=== PATIENT | male | born 1970 | race Caucasian/White ===

== ENCOUNTER 2016-11-29 19:57 | Emergency (ER) | payer OTHER ==
--- NOTE | 2016-11-29 20:22 | DIAGNOSTIC IMAGING REPORT ---
PROCEDURE: XR CHEST 2 VIEW INDICATION: COUGH TECHNIQUE: PA and lateral views. COMPARISON: Compared to chest x-ray on 09/30/2014. FINDINGS: There is linear scarring at the left lung base. Lungs are otherwise clear. Heart and mediastinum are normal. Thorax is normal. IMPRESSION: 1. Negative chest.
--- NOTE | 2016-11-29 20:53 | ED ORDER SUMMARY ---
..... Patient: HOLDEN BOYLE OrderSheet [facility] VisitID: [id number] [address] [place] [address] 46y, M Registration Date/Time: 11/29/2016 ORDER SHEET Weight: 93.8 kg (stated) Allergies: No Known Drug Allergy GENERAL ORDERS: Chest 2V Urgent (20:11 11/29/2016 Ann Mauricio.A.-C) (Ack 20:15 LMuller) (20:17 EHassan R.N.) MEDICATION ORDERS: DuoNeb Neb Tx 1 unit dose (NOW) (20:34 11/29/2016 Ann Mauricio.Matthew.-C) (20:53 Tom R.N.) IV FLUIDS: ORDER SHEET NOTES: [Electronically signed by Josefina Mosher R.N. (21:36 11/29/2016)] [Electronically signed by Josey Shirley P.A.-C (21:39 11/29/2016)] [Electronically locked/signed by Josefina Mosher R.N. (21:36 11/29/2016)]
--- NOTE | 2016-11-29 20:53 | ED NURSING NOTES ---
Clinical Report - Nurses [facility] [address] [place] [address] 11/29/2016 19:59 Patient: HOLDEN BOYLE TRIAGE Triage time 2007 PM. Acuity: LEVEL 3. Chief Complaint: WHEEZING (asthma). Alert. No acute distress. MAYDA COMA SCORE: Mayda Coma Scale: 15- eyes open spontaneously (4); best verbal response- oriented x 4 (5); best motor response- obeys commands (6). --20:16 Josefina Mosher R.N. 20:07 11/29/16. BP: 136/85 taken while sitting. HR: 75. RR: 18. O2 saturation: 100% on room air. Temp: 97.6 F (oral). Pain level now: 0/10. --20:16 Josefina Mosher R.N. Weight: 93.8 kg stated. Height/Length: 69 inches Per Patient. BMI: 30.6. --20:15 Josefina Mosher R.N. Medications Albuterol Sulfate Inhalation. --20:15 Josefina Mosher R.N. Medication/allergy information source: the patient. --20:16 Josefina Mosher R.N. Allergies No Known Drug Allergy. --20:15 Josefina Mosher R.N. History Arrived by private vehicle. Historian: patient. ( Pt states being sick in September which has brought on his asthma (chronic) which has taken albuterol and Provair with no relief.). Onset was abrupt. (4 days). He has had fatigue. No headache, photophobia, nasal discharge, sinus pain or difficulty breathing. No chest congestion. 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 PAST MEDICAL HX: Immunizations: status is unknown. SOCIAL HX: Never smoker. No alcohol use or drug use. No infectious disease exposure. ABUSE ASSESSMENT: No report of abuse. SELF HARM ASSESSMENT: A self harm assessment was performed. The patient answered "no" to the question "Do you have thoughts of harming or killing yourself?" and "Have you recently had thoughts about harming or killing others?". FALL RISK ASSESSMENT: Fall risk assessment completed. No fall risk identified. NUTRITIONAL RISK ASSESSMENT: The nutritional risk assessment revealed no deficiencies. FUNCTIONAL ASSESSMENT: Functional assessment: no impairments noted. LEARNING NEEDS ASSESSMENT: The learning needs assessment revealed no barriers. SKIN INTEGRITY ASSESSMENT: Skin integrity risk assessment completed. No skin integrity risk identified. --20:16 Josefina Mosher R.N. PROBLEMS: Dyspnea. Systemic inflamatory reaction. Asthma. Laceration. Tetanus Status. Immunizations. --20:15 Josefina Mosher R.N. ADDITIONAL SURGERIES: Endoscopy. --20:15 Josefina Mosher R.N. Interventions ID band on patient. --20:16 Josefina Mosher R.N. PHYSICAL ASSESSMENT Ambulatory to room. GENERAL / NEURO / PSYCH: Alert. Oriented X 4. Appears in no acute distress. HEENT: Voice within normal limits. Mucous membranes are pink. RESPIRATORY: Respirations not labored. The patient can speak in full sentences. Breath sounds within normal limits. CVS: Capillary refill less than 2 seconds. SKIN: Skin is warm and dry. Normal skin turgor. --20:17 Josefina Mosher R.N. NURSING PROGRESS NOTES The initial plan of care for this patient has been created This plan of care was discussed with the patient. Patient gowned and gowned. Warming measures: blanket applied. Reassurance given. Patient transported to radiology. Two patient identifiers checked. Call light placed in reach. Side rails up x 1. Bed placed in lowest position. Brakes of bed on. Brakes of chair on. FALL RISK ASSESSMENT: Fall risk assessment completed. No fall risk identified. --20:17 Josefina Mosher R.N. 20:53 11/29/2016 Duoneb (Ipratropium-Albuterol) Neb TX Nebulizer 1 unit dose given. Given by the nurse. Allergies verified and confirmed 5 rights. --20:53 Josefina Mosher R.N. Reassurance given. Reassessment after medication administered (Duo neb). He is calm. RESPIRATORY: No respiratory distress present. Breath sounds normal. No abnormal breath sounds. Two patient identifiers checked. Call light placed in reach. Side rails up. Bed placed in lowest position. Brakes of bed on. Brakes of chair on. --20:54 Josefina Mosher R.N. 20:53 11/29/16. HR: 59. RR: 16. O2 saturation: 100%. --20:54 Josefina Mosher R.N. 21:03 11/29/2016 Anastasiia Pop [place] Response: no adverse reaction symptoms have improved the patient feels better. --21:03 Josefina Mosher R.N. DISPOSITION / DISCHARGE Departure time: 2132 PM. Condition at departure: improved. The goals identified in the patient's plan of care were met. No learning barriers present. Discharge instructions provided and reviewed with the patient and spouse. Reviewed medication(s) side effects, precautions, dosing and course information. Prescription(s) given to the patient. Reviewed need for increased fluid intake. Activity restrictions (rest) reviewed. Spouse verbalized understanding. Written instructions provided in [place]i. No stop smoking instructions. The patient was discharged by the physician veterinary assistant technician. He was discharged home and accompanied by spouse. He left the Emergency Department ambulatory and via private vehicle. Spouse driving. FALL RISK ASSESSMENT: Fall risk assessment completed. No fall risk identified. MAYDA COMA SCORE: Mayda Coma Scale: 15- eyes open spontaneously (4); best verbal response- oriented x 4 (5); best motor response- obeys commands (6). --21:36 Josefina Mosher R.N. 21:30 11/29/16. BP: 124/70 (regular adult cuff) taken on the left arm, via an automated monitor, while sitting. HR: 77. RR: 16 (regular and unlabored). O2 saturation: 100% on room air. Temp: 97.6 F (oral). Pain level now: 0/10. --21:36 Josefina Mosher R.N. Locked/Released at 11/29/2016 21:36 by Josefina Mosher R.N.
--- NOTE | 2016-11-29 20:53 | ED NURSING NOTES ---
Clinical Report - Nurses [facility] [address] [place] [address] 11/29/2016 19:59 Patient: HOLDEN BOYLE TRIAGE Triage time 2007 PM. Acuity: LEVEL 3. Chief Complaint: WHEEZING (asthma). Alert. No acute distress. MAYDA COMA SCORE: Mayda Coma Scale: 15- eyes open spontaneously (4); best verbal response- oriented x 4 (5); best motor response- obeys commands (6). --20:16 Josefina Mosher R.N. 20:07 11/29/16. BP: 136/85 taken while sitting. HR: 75. RR: 18. O2 saturation: 100% on room air. Temp: 97.6 F (oral). Pain level now: 0/10. --20:16 Josefina Mosher R.N. Weight: 93.8 kg stated. Height/Length: 69 inches Per Patient. BMI: 30.6. --20:15 Josefina Mosher R.N. Medications Albuterol Sulfate Inhalation. --20:15 Josefina Mosher R.N. Medication/allergy information source: the patient. --20:16 Josefina Mosher R.N. Allergies No Known Drug Allergy. --20:15 Josefina Mosher R.N. History Arrived by private vehicle. Historian: patient. ( Pt states being sick in September which has brought on his asthma (chronic) which has taken albuterol and Provair with no relief.). Onset was abrupt. (4 days). He has had fatigue. No headache, photophobia, nasal discharge, sinus pain or difficulty breathing. No chest congestion. 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 PAST MEDICAL HX: Immunizations: status is unknown. SOCIAL HX: Never smoker. No alcohol use or drug use. No infectious disease exposure. ABUSE ASSESSMENT: No report of abuse. SELF HARM ASSESSMENT: A self harm assessment was performed. The patient answered "no" to the question "Do you have thoughts of harming or killing yourself?" and "Have you recently had thoughts about harming or killing others?". FALL RISK ASSESSMENT: Fall risk assessment completed. No fall risk identified. NUTRITIONAL RISK ASSESSMENT: The nutritional risk assessment revealed no deficiencies. FUNCTIONAL ASSESSMENT: Functional assessment: no impairments noted. LEARNING NEEDS ASSESSMENT: The learning needs assessment revealed no barriers. SKIN INTEGRITY ASSESSMENT: Skin integrity risk assessment completed. No skin integrity risk identified. --20:16 Josefina Mosher R.N. PROBLEMS: Dyspnea. Systemic inflamatory reaction. Asthma. Laceration. Tetanus Status. Immunizations. --20:15 Josefina Mosher R.N. ADDITIONAL SURGERIES: Endoscopy. --20:15 Josefina Mosher R.N. Interventions ID band on patient. --20:16 Josefina Mosher R.N. PHYSICAL ASSESSMENT Ambulatory to room. GENERAL / NEURO / PSYCH: Alert. Oriented X 4. Appears in no acute distress. HEENT: Voice within normal limits. Mucous membranes are pink. RESPIRATORY: Respirations not labored. The patient can speak in full sentences. Breath sounds within normal limits. CVS: Capillary refill less than 2 seconds. SKIN: Skin is warm and dry. Normal skin turgor. --20:17 Josefina Mosher R.N. NURSING PROGRESS NOTES The initial plan of care for this patient has been created This plan of care was discussed with the patient. Patient gowned and gowned. Warming measures: blanket applied. Reassurance given. Patient transported to radiology. Two patient identifiers checked. Call light placed in reach. Side rails up x 1. Bed placed in lowest position. Brakes of bed on. Brakes of chair on. FALL RISK ASSESSMENT: Fall risk assessment completed. No fall risk identified. --20:17 Josefina Mosher R.N. 20:53 11/29/2016 Duoneb (Ipratropium-Albuterol) Neb TX Nebulizer 1 unit dose given. Given by the nurse. Allergies verified and confirmed 5 rights. --20:53 Josefina Mosher R.N. Reassurance given. Reassessment after medication administered (Duo neb). He is calm. RESPIRATORY: No respiratory distress present. Breath sounds normal. No abnormal breath sounds. Two patient identifiers checked. Call light placed in reach. Side rails up. Bed placed in lowest position. Brakes of bed on. Brakes of chair on. --20:54 Josefina Mosher R.N. 20:53 11/29/16. HR: 59. RR: 16. O2 saturation: 100%. --20:54 Josefina Mosher R.N. 21:03 11/29/2016 Anastasiia Pop [place] Response: no adverse reaction symptoms have improved the patient feels better. --21:03 Josefina Mosher R.N. DISPOSITION / DISCHARGE Departure time: 2132 PM. Condition at departure: improved. The goals identified in the patient's plan of care were met. No learning barriers present. Discharge instructions provided and reviewed with the patient and spouse. Reviewed medication(s) side effects, precautions, dosing and course information. Prescription(s) given to the patient. Reviewed need for increased fluid intake. Activity restrictions (rest) reviewed. Spouse verbalized understanding. Written instructions provided in Irish. No stop smoking instructions. The patient was discharged by the physician assistant tennis professional. He was discharged home and accompanied by spouse. He left the Emergency Department ambulatory and via private vehicle. Spouse driving. FALL RISK ASSESSMENT: Fall risk assessment completed. No fall risk identified. MAYDA COMA SCORE: Mayda Coma Scale: 15- eyes open spontaneously (4); best verbal response- oriented x 4 (5); best motor response- obeys commands (6). --21:36 Josefina Mosher R.N. 21:30 11/29/16. BP: 124/70 (regular adult cuff) taken on the left arm, via an automated monitor, while sitting. HR: 77. RR: 16 (regular and unlabored). O2 saturation: 100% on room air. Temp: 97.6 F (oral). Pain level now: 0/10. --21:36 Josefina Mosher R.N. Locked/Released at 11/29/2016 21:36 by Josefina Mosher R.N.
--- NOTE | 2016-11-29 20:53 | ED CLINICAL REPORT ---
Clinical Report - Physicians/Mid Levels [facility] [address] [place] [address] 11/29/2016 19:59 Patient: HOLDEN BOYLE Time Seen: 20:13 Nov 29 2016. Arrived- By private vehicle. Historian- patient. HISTORY OF PRESENT ILLNESS Chief Complaint: DYSPNEA, WHEEZING and HISTORY OF ASTHMA. This started just prior to arrival and is still present. The dyspnea is described as mild. The patient has had sputum production and a cough. (patient reports being ill over the last 4 weeks, symptoms of such have improved, her continues to have respiratory problems, and difficulty catching his breath. has not seen pcp). REVIEW OF SYSTEMS No sore throat, nasal discharge, chills, muscle aches or abdominal pain. No diarrhea. All systems otherwise negative, except as recorded above. ADDITIONAL NOTES The nursing notes have been reviewed. PHYSICAL EXAM Appearance: Alert. Eyes: Eyes normal inspection. ENT: Ears normal. Nose normal. Pharynx normal. Uvula midline. No pharyngeal erythema or tonsillar exudate. CVS: Normal heart rate and rhythm. Respiratory: No respiratory distress. Breath sounds normal. LABS, X-RAYS, AND EKG Chest X-ray: (IMPRESSION: 1. Negative chest. Electronically Final signed by:Anderson Muller MD 11/29/2016 8:20:46 PM). PROGRESS AND PROCEDURES Course of Care: Now has very wheezing, which cleared with cough, as well as DuoNeb treatment in ER, patient with history of asthma, no clear signs of infectious process at this time, no antibiotics indicated, afebrile, normal cardiac, will start on Medrol Dosepak, patient otherwise to follow up with primary care provider, PERC negative,. Patient is stable. Symptoms better. Patient/family counseled. Disposition: Discharged. CLINICAL IMPRESSION Moderate persistent asthma with an acute exacerbation. No status asthmaticus. INSTRUCTIONS (steam/ humidified air may help). Prescription Medications: Medrol Dosepak: take according to package directions. Dispense one (1) dosepak. No refills. Substitution is permissible. OTC Medications: Take acetaminophen (Tylenol, Datril, etc.), naproxen (Aleve), Benadryl and nasal spray decongestant (such as Afrin) according to label instructions. Available over the counter. Follow-up: Follow up with your doctor as scheduled. (Electronically signed by Josey Shirley P.A.-C 11/29/2016 21:39)
--- NOTE | 2016-11-29 20:53 | ED ORDER SUMMARY ---
..... Patient: HOLDEN BOYLE OrderSheet [facility] VisitID: [id number] [address] [place] [address] 46y, M Registration Date/Time: 11/29/2016 ORDER SHEET Weight: 93.8 kg (stated) Allergies: No Known Drug Allergy GENERAL ORDERS: Chest 2V Urgent (20:11 11/29/2016 Ann Mauricio.A.-C) (Ack 20:15 LMuller) (20:17 EHassan R.N.) MEDICATION ORDERS: DuoNeb Neb Tx 1 unit dose (NOW) (20:34 11/29/2016 Ann Mauricio.Matthew.-C) (20:53 Tom R.N.) IV FLUIDS: ORDER SHEET NOTES: [Electronically signed by Josefina Mosher R.N. (21:36 11/29/2016)] [Electronically signed by Josey Shirley P.A.-C (21:39 11/29/2016)] [Electronically locked/signed by Josefina Mosher R.N. (21:36 11/29/2016)]
--- NOTE | 2016-11-29 20:53 | ED CLINICAL REPORT ---
Clinical Report - Physicians/Mid Levels [facility] [address] [place] [address] 11/29/2016 19:59 Patient: HOLDEN BOYLE Time Seen: 20:13 Nov 29 2016. Arrived- By private vehicle. Historian- patient. HISTORY OF PRESENT ILLNESS Chief Complaint: DYSPNEA, WHEEZING and HISTORY OF ASTHMA. This started just prior to arrival and is still present. The dyspnea is described as mild. The patient has had sputum production and a cough. (patient reports being ill over the last 4 weeks, symptoms of such have improved, her continues to have respiratory problems, and difficulty catching his breath. has not seen pcp). REVIEW OF SYSTEMS No sore throat, nasal discharge, chills, muscle aches or abdominal pain. No diarrhea. All systems otherwise negative, except as recorded above. ADDITIONAL NOTES The nursing notes have been reviewed. PHYSICAL EXAM Appearance: Alert. Eyes: Eyes normal inspection. ENT: Ears normal. Nose normal. Pharynx normal. Uvula midline. No pharyngeal erythema or tonsillar exudate. CVS: Normal heart rate and rhythm. Respiratory: No respiratory distress. Breath sounds normal. LABS, X-RAYS, AND EKG Chest X-ray: (IMPRESSION: 1. Negative chest. Electronically Final signed by:Anderson Muller MD 11/29/2016 8:20:46 PM). PROGRESS AND PROCEDURES Course of Care: Now has very wheezing, which cleared with cough, as well as DuoNeb treatment in ER, patient with history of asthma, no clear signs of infectious process at this time, no antibiotics indicated, afebrile, normal cardiac, will start on Medrol Dosepak, patient otherwise to follow up with primary care provider, PERC negative,. Patient is stable. Symptoms better. Patient/family counseled. Disposition: Discharged. CLINICAL IMPRESSION Moderate persistent asthma with an acute exacerbation. No status asthmaticus. INSTRUCTIONS (steam/ humidified air may help). Prescription Medications: Medrol Dosepak: take according to package directions. Dispense one (1) dosepak. No refills. Substitution is permissible. OTC Medications: Take acetaminophen (Tylenol, Datril, etc.), naproxen (Aleve), Benadryl and nasal spray decongestant (such as Afrin) according to label instructions. Available over the counter. Follow-up: Follow up with your doctor as scheduled. (Electronically signed by Josey Shirley P.A.-C 11/29/2016 21:39)
--- NOTE | 2016-11-29 21:39 | ED MAR SUMMARY ---
..... Medication Administration Record [facility] [address] [place] [address] Patient: HOLDEN BOYLE Visit ID: [id number] 46y, M Weight: 93.8 kg Height/Length: 69 in BMI: 30.6 ALLERGIES: No Known Drug Allergy Given 20:53 11/29/2016 Josefina Mosher R.N. Medication Administered: DUONEB [NEB TX] (IPRATROPIUM-ALBUTEROL), Dose: 1 unit dose Nebulizer Neb TX. Medication Ordered: DuoNeb Neb Tx 1 unit dose (NOW).
--- NOTE | 2016-11-29 21:39 | ED MED RECONCILIATION SUMMARY ---
Patient: HOLDEN BOYLE Medication Reconciliation Report [facility] VisitID: [id number] [address] [place] [address] 46y, M Registration Date/Time: 11/29/2016 Weight: 93.8 kg Height/Length: 69 in. BMI: 30.6 ALLERGIES: No Known Drug Allergy The patient's Home Medications are listed below: THE FOLLOWING MEDICATIONS NEED TO BE RECONCILED: Albuterol Sulfate Inhalation The source(s) of the original Home Medication information: patient The following Medications were given to the patient in the Emergency Department: Duoneb [Neb Tx] Neb TX 1 unit dose, administered: 11/29/2016 8:53:00 PM The following Medications were prescribed to the patient: Take acetaminophen (Tylenol, Datril, etc.), naproxen (Aleve), Benadryl and nasal spray decongestant (such as Afrin) according to label instructions. Available over the counter. -- Josey Shirley P.A.-Michell Medrol Dosepak: take according to package directions. Dispense one (1) dosepak. No refills. Substitution is permissible. -- Josey Shirley, P.A.-C
--- NOTE | 2016-11-29 21:39 | ED DISCHARGE INSTRUCTIONS ---
Patient: HOLDEN BOYLE General Instructions [facility]ly [facility] VisitID: [id number] [place] [address] 46y, M Registration Date/Time: 11/29/2016 Moderate persistent asthma with an acute exacerbation. No status asthmaticus. INSTRUCTIONS (steam/ humidified air may help). Prescription Medications: Medrol Dosepak: take according to package directions. Dispense one (1) dosepak. No refills. Substitution is permissible. OTC Medications: Take acetaminophen (Tylenol, Datril, etc.), naproxen (Aleve), Benadryl and nasal spray decongestant (such as Afrin) according to label instructions. Available over the counter. Follow-up: Follow up with your doctor as scheduled. ADDITIONAL INFORMATION Asthma [Adult] Asthma is a disease where the small air passages within the lung go into spasm and restrict the flow of air. Inflammation and swelling of the airways cause further restriction. During an acute asthma attack, these factors cause difficulty breathing, wheezing, cough and chest tightness. An asthma attack can be triggered by many things. Common triggers include the common cold, bronchitis, pneumonia, irritants such as smoke or pullutants in the air, emotional upset and heavy exercise. Inmany adults with asthma, allergies todust, mold, pollen and animal dander can cause an asthma attack. Skipping doses of daily asthma medicine can also bring on an asthma attack. Asthma can be controlled with proper medicines and decreased exposure to known allergens. Home Care: Take prescribed medicine exactly at the times advised. If you have a hand-held inhaler or aerosol breathing medicine, do not use it more than once every four hours, unless told to do so. (If you need this medicine more than every four hours, you may need to return to the Emergency Room.) If prescribed an antibiotic or prednisone, take all of the medicine even if you are feeling better after a few days. Do not smoke. Avoid being exposed to the smoke of others. Some persons with asthma have worsening of their symptoms when they take aspirin and non-steroidal medicines like ibuprofen (Motrin, Advil) and naproxen (Aleve, Naprosyn). Talk to your doctor if you think this may apply to you. Acetaminophen (Tylenol)should be safe to use. Follow Up with your doctor, or as advised by our staff. Always bring all of your current medicines with you for your doctor to see. If you do not already have one, talk to your doctor about developing a personalized "Asthma Action Plan." [NOTE: A pneumococcal vaccine and yearly flu shot (every fall) are recommended. Ask your doctor about this.] Get Prompt Medical Attention if any of the following occur: Increased wheezing or shortness of breath Need to use your inhalers more often than usual without relief Fever of 100.4F (38C) or higher, or as directed by your healthcare provider Coughing up lots of dark-colored or bloody sputum (mucus) Chest pain with each breath You do not start to improve within 24 hours Call 911 If Any Of The Following Occur : Trouble walking or talking because of shortness of breath If you use a peak flow meter andyou are still in the red zone (less than 50 percent) 15 minutes after using inhaler medication Lips or fingernails turning ren or blue Bronchitis With Wheezing (Viral Or Bacterial: Adult) Bronchitis is an infection of the air passages. It often occurs during the common cold and is usually caused by a virus. Symptoms include cough with mucus (phlegm) and low-grade fever. If there is a lot of inflammation, air flow is restricted. The air passages may also go into spasm, especially if you are an asthmatic. This causes wheezing and difficulty breathing even in persons who do not have asthma. Bronchitis usually lasts 7-14 days. The wheezing should improve with treatment during the first week. An inhaler is often prescribed to relax the air passages and stop wheezing. Antibiotics will be prescribed if your doctor thinks there is also a secondary bacterial infection. Home Care: If symptoms are severe, rest at home for the first 2-3 days. When resuming activity, don't let yourself become overly tired. Do not smoke and avoid exposure to the smoke of others. You may use acetaminophen (Tylenol) or ibuprofen (Motrin, Advil) to control fever, unless another medicine was prescribed. [NOTE: If you have chronic liver or kidney disease or ever had a stomach ulcer or GI bleeding, talk with your doctor before using these medicines.] (Aspirin should never be used in anyone under 18 years of age who is ill with a fever. It may cause severe liver damage.) Your appetite may be poor so a light diet is fine. Avoid dehydration by drinking 6-8 glasses of fluids per day (water, soft, drinks, juices, tea, soup, etc.). Extra fluids will help loosen secretions in the lungs. Adeh-qvl-zjrxzzd cough medicines that containdextromethorphan(such as Robitussin DM) and decongestants (Actifed or Sudafed) may help relieve cough and congestion. [NOTE: Do not use decongestants if you have high blood pressure.] If you were given an inhaler, use it exactly as directed. If you need to use it more often than prescribed, your condition may be worsening. Contact your doctor or this facility. If prescribed, finish all antibiotic medicine, even if you are feeling better after only a few days. Follow Up With Your Doctor Or As Directed If You Are Not Starting To Feel Better After Three Days. [NOTE: If you are age 65 or older, or if you have chronic asthma or COPD, we recommend a pneumococcal vaccination every five years and a yearly influenza vaccination (flu shot) every . Ask your doctor about this. If you had an x-ray or EKG (electrocardiogram), it will be reviewed by a specialist. You will be notified of any new findings that may affect your care.] Get Prompt Medical Attention If Any Of The Following Occur: Increased wheezing, shortness of breath or pain with breathing Fever of 100.4F (38C) oral or higher, not better with fever medication Coughing up blood or increasing amounts of colored sputum Weakness, drowsiness, headache, facial pain, ear pain or a stiff neck Lower leg swelling, tenderness, redness or pain You have been given the following additional information: Asthma, Acute (Adult) Bronchitis With Wheezing (Adult) (Electronically signed by Josey Shirley P.A.-C 11/29/2016 21:39)
--- NOTE | 2016-11-29 21:39 | ED MAR SUMMARY ---
..... Medication Administration Record [facility] [address] [place] [address] Patient: HOLDEN BOYLE Visit ID: [id number] 46y, M Weight: 93.8 kg Height/Length: 69 in BMI: 30.6 ALLERGIES: No Known Drug Allergy Given 20:53 11/29/2016 Josefina Mosher R.N. Medication Administered: DUONEB [NEB TX] (IPRATROPIUM-ALBUTEROL), Dose: 1 unit dose Nebulizer Neb TX. Medication Ordered: DuoNeb Neb Tx 1 unit dose (NOW).
--- NOTE | 2016-11-29 21:39 | ED MED RECONCILIATION SUMMARY ---
Patient: HOLDEN BOYLE Medication Reconciliation Report [facility] VisitID: [id number] [address] [place] [address] 46y, M Registration Date/Time: 11/29/2016 Weight: 93.8 kg Height/Length: 69 in. BMI: 30.6 ALLERGIES: No Known Drug Allergy The patient's Home Medications are listed below: THE FOLLOWING MEDICATIONS NEED TO BE RECONCILED: Albuterol Sulfate Inhalation The source(s) of the original Home Medication information: patient The following Medications were given to the patient in the Emergency Department: Duoneb [Neb Tx] Neb TX 1 unit dose, administered: 11/29/2016 8:53:00 PM The following Medications were prescribed to the patient: Take acetaminophen (Tylenol, Datril, etc.), naproxen (Aleve), Benadryl and nasal spray decongestant (such as Afrin) according to label instructions. Available over the counter. -- Josey Shirley P.A.-Michell Medrol Dosepak: take according to package directions. Dispense one (1) dosepak. No refills. Substitution is permissible. -- Josey Shirley, P.A.-C
== END 2016-11-29 21:32 | disposition home or self-care (01) ==
LOC: ED SRH 19:57
DX: J45.41 Moderate persistent asthma with (acute) exacerbation (principal); Z79.51 Long term (current) use of inhaled steroids